=== PATIENT | male | born 1970 | race Caucasian/White ===

== ENCOUNTER 2017-08-26 22:05 | Emergency (ER) | payer BC ==
[2017-08-27 00:40] VITALS: BP 111/75
--- NOTE | 2017-08-27 07:41 | RAD ---
INDICATION: Right lower extremity pain. COMPARISON: There are no prior studies available for comparison. TECHNIQUE: Multiple real-time, color flow and Doppler tracings of the right lower extremity were obtained. FINDINGS: The common femoral, femoral, profunda femoral and popliteal veins all demonstrate normal compressibility, augmentation with compression and phasic response with respiration. The posterior tibial and peroneal veins demonstrate normal compressibility and augmentation with compression. There are some thrombosed superficial varicose veins in the calf. IMPRESSION: 1. NO EVIDENCE FOR DEEP VENOUS THROMBOSIS. 2. SUPERFICIAL VENOUS THROMBOSIS IN THE CALF.
--- NOTE | 2017-08-28 19:14 | ED ---
Nargis Azar Edward, scribed for Maeve Mi MD on 08/26/17 at 2324 . Lower Extremity - HPI Summary HPI Summary: 47 y/o male presents to the ED c/o hardness at RLE starting around 1 week ago. The site is painful to touch. Not alleviated by anything. - History of Current Complaint Chief Complaint: EDExtremityLower Stated Complaint: RIGHT LEG PAIN Time Seen by Provider: 08/26/17 23:17 Hx Obtained From: Patient Onset/Duration: Still Present Severity Initially: Mild Severity Currently: Mild Pain Intensity: 4 Pain Scale Used: 0-10 Numeric Timing: Constant Location: Is Discrete @ - RLE Associated Signs And Symptoms: Positive: Swelling - hard knot Aggravating Factor(s): Other - touch Alleviating Factor(s): Nothing - Allergies/Home Medications Allergies/Adverse Reactions: Allergies Allergy/AdvReac Type Severity Reaction Status Date / Time No Known Allergies Allergy Verified 08/26/17 22:06 PMH/Surg Hx/FS Hx/Imm Hx Previously Healthy: No Endocrine/Hematology History: Denies: Hx Diabetes, Hx Thyroid Disease Cardiovascular History: Denies: Hx Hypercholesterolemia, Hx Hypertension, Hx Pacemaker/ICD, Hx Peripheral Vascular Disease Musculoskeletal History: Denies: Hx Arthritis, Hx Rheumatoid Arthritis, Hx Osteoporosis Sensory History: Denies: Hx Cataracts, Hx Contacts or Glasses, Hx Glaucoma, Hx Hearing Aid Opthamlomology History: Denies: Hx Cataracts, Hx Contacts or Glasses, Hx Glaucoma Neurological History: Denies: Hx Headaches, Hx Seizures, Hx Transient Ischemic Attacks (TIA) Psychiatric History: Denies: Hx Anxiety, Hx Depression, Hx Panic Disorder Infectious Disease History: No Infectious Disease History: Denies: Traveled Outside the [place] in Last 30 Days - Family History Known Family History: Positive: Unknown - Social History Hx Substance Use: No Substance Use Type: Reports: None Hx Tobacco Use: No Smoking Status (MU): Never Smoked Tobacco Review of Systems Constitutional: Negative Eyes: Negative ENT: Negative Cardiovascular: Negative Respiratory: Negative Gastrointestinal: Negative Genitourinary: Negative Positive: Other - Knot at RLE, painful Skin: Negative Neurological: Negative Psychological: Normal All Other Systems Reviewed And Are Negative: Yes Physical Exam - Summary Physical Exam Summary: VITAL SIGNS: Reviewed. GENERAL: Patient is a well-developed and nourished male who is lying comfortable in the stretcher. Patient is not in any acute respiratory distress. HEAD AND FACE: No signs of trauma. No ecchymosis, hematomas or skull depressions. No sinus tenderness. EYES: PERRLA, EOMI x 2, No injected conjunctiva, no nystagmus. EARS: Hearing grossly intact. Ear canals and tympanic membranes are within normal limits. MOUTH: Oropharynx within normal limits. NECK: Supple, trachea is midline, no adenopathy, no JVD, no carotid bruit, no c- spine tenderness, neck with full ROM. CHEST: Symmetric, no tenderness at palpation LUNGS: Clear to auscultation bilaterally. No wheezing or crackles. CVS: Regular rate and rhythm, S1 and S2 present, no murmurs or gallops appreciated. ABDOMEN: Soft, non-tender. No signs of distention. No rebound no guarding, and no masses palpated. Bowel sounds are normal. EXTREMITIES: FROM in all major joints, no cyanosis or clubbing. Cord-like structure with tenderness over the R calf, consistent with phlebitis. NEURO: Alert and oriented x 3. No acute neurological deficits. Speech is normal and follows commands. SKIN: Dry and warm Triage Information Reviewed: Yes Vital Signs On Initial Exam: Initial Vitals Temp Pulse Resp BP Pulse Ox 98.6 F 64 14 122/80 97 08/26/17 22:07 08/26/17 22:07 08/26/17 22:07 08/26/17 22:07 08/26/17 22:07 Vital Signs Reviewed: Yes Diagnostics - Vital Signs Vital Signs Temp Pulse Resp BP Pulse Ox 08/26/17 22:07 98.6 F 64 14 122/80 97 - Laboratory Lab Statement: Any lab studies that have been ordered have been reviewed, and results considered in the medical decision making process. - Ultrasound No standard instances Ultrasound Interpretation: No Acute Changes - No deep vein thrombosis. Ultrasound Interpretation Completed By: Radiologist - ED PHYSICIAN REVIEWS AND AGREES Re-Evaluation - Re-Evaluation 1 Re-Evaluation Time: 00:33 Change: Unchanged - Pt will be d/c home. Informed pt of ultrasound results. Lower Extremity Course/Dx - Course Assessment/Plan: 47 y/o male presents to the ED with cord-like strucutre in RLE , consistent with phlebitis on exam. DUSTIN DOPPLER OF RLE SHOWS NO DEEP VEIN THROMBOSIS. Pt will be d/c home with f/u with PCP and recommend vascular surgery consultation. Pt will be instructed to use mortrin, warm compression and compression stockings at home to treat. - Diagnoses Provider Diagnoses: Varicose veins of right lower extremity Discharge - Discharge Plan Condition: Stable Disposition: HOME Referrals: [facility] [place] [facility] [Outside] - 4 Days (PLEASE F/U In 3-5 DAYS) Jacob Bee MD [Medical Doctor] - 4 Days (RECOMMEND CONSULT WITH VASCULAR SURGEON) Additional Instructions: USE WARM COMPRESSES AND COMPRESSION STOCKINGS The documentation as recorded by the Nargis snow Edward accurately reflects the service I personally performed and the decisions made by Shmuel birmingham Abdul, MD.
== END 2017-08-27 01:04 | disposition home or self-care (01) ==
LOC: ED 22:05
DX: I83.811 Varicose veins of right lower extremity with pain (principal)
CPT/HCPCS: 99282